=== PATIENT | female | born 1935 | race Caucasian/White ===

== ENCOUNTER → 2016-10-27 | Outpatient (CLI) | payer MEDICARE, BC ==
[~2016-10-27] MED LIST: AMLOPIDINE PO; ANTIVERT 25MG25 MG PO; BENICAR 20MG TA20 MG PO; CALCIUM CARBON500 M1 PO; CENTRUM SILVER1 TA1 PO; CINNAMON; FEVERFEW; FISH OIL CONC1000 MG PO; LOPRESSOR 225 MG/TAB PO; LOTENSIN10 MG PO; MAGNESIUM OXIDE; NORCO 325 MG-51 TAB PO; SYNTHROID0.075 MG/T PO; TENORMIN 5050 MG/TAB PO; VITAMIN D
== END ==
LOC: MC.RAD 10:57
DX: Z12.31 Encounter for screening mammogram for malignant neoplasm of breast (principal); Z80.3 Family history of malignant neoplasm of breast

== ENCOUNTER 2017-08-15 13:15 | Outpatient (RCR) | payer MEDICARE, BC ==
[2017-08-20] MEDS ORDERED: TESSALON P100 MG/CAP PO (14:18)
[2017-08-20] MEDS ORDERED: OMNICEF 300MG300 MG PO (14:19)
== END 2017-09-17 15:10 | disposition home or self-care (01) ==
LOC: WSOT 13:15
DX: S63.285D Dislocation of proximal interphalangeal joint of left ring finger, subsequent encounter (principal)
CPT/HCPCS: G8987-GO; G8988-GO

== ENCOUNTER 2017-12-06 12:30 | Outpatient (RCR) | payer MEDICARE, BC | END 2017-12-07 14:55 | disposition home or self-care (01) | LOC: WSOT 12:30 | DX: S53.22XA Traumatic rupture of left radial collateral ligament, initial encounter (principal) | CPT/HCPCS: G8987-GO; G8989-GO ==

== ENCOUNTER → 2017-12-06 | Outpatient (CLI) | payer MEDICARE, BC ==
[~2017-12-06] MED LIST changes: +OMNICEF 300MG300 MG PO; +TESSALON P100 MG/CAP PO
== END ==
LOC: MC.RAD 09:38
DX: Z12.31 Encounter for screening mammogram for malignant neoplasm of breast (principal); Z80.3 Family history of malignant neoplasm of breast

== ENCOUNTER → 2018-12-12 | Outpatient (CLI) | payer MEDICARE, BC | LOC: MC.RAD 12-09 10:15 | DX: Z12.31 Encounter for screening mammogram for malignant neoplasm of breast (principal); N63.20 Unspecified lump in the left breast, unspecified quadrant; Z80.3 Family history of malignant neoplasm of breast ==

== ENCOUNTER → 2018-12-19 | Outpatient (CLI) | payer MEDICARE, BC | LOC: MC.RAD 09:45 | DX: N63.20 Unspecified lump in the left breast, unspecified quadrant (principal) ==

== ENCOUNTER → 2019-04-10 | Outpatient (CLI) | payer MEDICARE, BC | LOC: COL.RAD 13:15 | DX: N13.30 Unspecified hydronephrosis (principal); N30.20 Other chronic cystitis without hematuria ==

== ENCOUNTER → 2019-11-03 | Outpatient (CLI) | payer MEDICARE, BC | LOC: MC.RAD 12:46 | DX: N64.4 Mastodynia (principal) | CPT/HCPCS: G0279 ==

== ENCOUNTER → 2021-05-05 | Outpatient (CLI) | payer MEDICARE, BC | LOC: MC.RAD 09:00 | DX: Z12.31 Encounter for screening mammogram for malignant neoplasm of breast (principal) ==

== ENCOUNTER → 2023-05-23 | Outpatient (CLI) | payer MEDICARE, BC | LOC: CANSCHCLI → MC.RAD 10:56 | DX: Z12.31 Encounter for screening mammogram for malignant neoplasm of breast (principal); Z80.3 Family history of malignant neoplasm of breast ==